=== PATIENT | female | born 1965 | race Caucasian/White ===

== ENCOUNTER 2022-01-17 11:15 | Emergency (ER) | payer SELFPAY ==
[~2022-01-17] VITALS: Ht 162.5 cm; Wt 68.0 kg
[~2022-01-17 11:15] MED LIST: CYMBALTA60 MG PO; DAYPRO600 M1 PO; KEFLEX500 MG PO; MOTRIN800 MG PO; NEURONTIN300 MG PO; ROBAXIN500 MG PO; TRAMADOL HCL50 MG PO; VICODIN 500 MG-1 TAB PO
[2022-01-17 11:23] VITALS: BP 119/84
[2022-01-17] MEDS ORDERED: POLYSPORIN OINT15 GM T (11:31)
== END 2022-01-17 11:37 | disposition home or self-care (01) ==
LOC: ED 11:15
DX: R21 Rash and other nonspecific skin eruption (principal); Z88.0 Allergy status to penicillin; Z79.899 Other long term (current) drug therapy